=== PATIENT | female | born 1995 | race Caucasian/White ===

== ENCOUNTER 2019-07-13 17:38 | Emergency (ER) | payer OTHER, MEDICAID ==
[~2019-07-13] VITALS: Ht 165.1 cm; Wt 97.5 kg
[2019-07-13] MEDS ORDERED: MAGNESIUM250 M1 PO (17:55)
[2019-07-13 18:27] LABS: ABSOLUTE EOSINOPHILS 0.1 thou/uL (0.0-0.7); ABSOLUTE LYMPHOCYTES 1.5 thou/uL (0.8-5.3); ABSOLUTE MONOCYTES 0.6 thou/uL (0.0-1.2); ABSOLUTE NEUTROPHILS 6.9 thou/uL (1.6-8.1); BASOPHILS 0.3 %; EOSINOPHILS 1.1 %; HEMATOCRIT 30.9 % (37.0-47.0); HEMOGLOBIN 10.9 gm/dL (12.0-15.0); LYMPHOCYTES 16.6 %; MCH 33.4 pg (26.0-34.0); MCHC 35.2 g/dL (28.0-37.0); MCV 94.8 fL (80.0-100.0); MONOCYTES 6.3 %; MPV 8.1 fl. (7.2-11.1); NUCLEATED RBCS 0 /100WBC; PLATELET COUNT* 214 thou/uL (150-400); POLYS 75.7 %; RBC 3.26 mil/uL (4.20-5.00); RDW-CV 13.8 % (10.5-14.5); WBC 9.1 thou/uL (4.0-11.0)
[2019-07-13 18:34] LABS: CREATININE 0.6 mg/dL (0.6-1.3); POTASSIUM 3.6 mmol/L (3.5-5.1)
[2019-07-13 18:35] LABS: APTT 23.6 Seconds (25.0-31.3); INR 0.9; PROTIME 9.7 Seconds (9.20-11.50)
[2019-07-13 18:38] LABS: ALBUMIN 2.7 g/dL (3.4-5.0); TOTAL BILIRUBIN 0.3 mg/dL (<0.1-1.0); URIC ACID* 4.3 mg/dL (2.6-7.2)
[2019-07-13 20:21] LABS: URINE BILIRUBIN NEGATIVE (Negative); URINE BLOOD NEGATIVE (Negative); URINE CLARITY SL CLOUDY; URINE COLOR YELLOW; URINE GLUCOSE-RANDOM NEGATIVE (Negative); URINE KETONES NEGATIVE (Negative); URINE LEUKOCYTES-REFLEX TRACE (Negative); URINE NITRITE-REFLEX NEGATIVE (Negative); URINE PROTEIN TRACE (Negative); URINE SPECIFIC GRAVITY 1.025 (1.005-1.030)
[2019-07-13] MEDS ORDERED: AUGMENTIN 875-1 EACH PO (20:27)
[2019-07-13 20:28] LABS: CASTS None Seen /LPF (None Seen); CRYSTALS None Seen /LPF (None Seen); MUCUS 0-3 Light strn/LPF (None Seen); SQUAMOUS >10 Many /LPF (0-3); URINE WBC-REFLEX 0-5 Rare /HPF (0-5)
[2019-07-13 20:29] LABS: BACTERIA-REFLEX None Seen /HPF (None Seen); URINE RBC None Seen /HPF (0-2)
[2019-07-13 20:40] VITALS: BP 114/79
--- NOTE | 2019-07-14 16:27 | EKG ---
[place] [address] ELECTROCARDIOGRAM REPORT Name: MATEUSZMITESH GELA Room: [facility]#: [id number] Admission: 07/13/19 Attend Phys: Discharge: 07/13/19 Date of : [birth year] Date of Service: 07/13/19 1825 Report #: [id number] THIS REPORT FOR: //name// [facility] ED Test Date: 2019-07-13 Test Time: 18:25:38 Pat Name: MITESH CHILD Department: Room: Gender: Lpn Rn Hospice: [place] : 1995 Requested By: Anny Gates Order Number: [id number] MD: Cricket Peters Measurements Intervals [place] Rate: 85 P: 49 MT: 125 QRS: 42 QRSD: 96 T: 40 QT: 362 QTc: 431 Interpretive Statements Sinus rhythm Baseline wander in lead(s) V2,V6 No previous ECG available for comparison Electronically Signed On 07-14-2019 16:26:36 CDT by Cricket Peters [email or web address] <ELECTRONICALLY SIGNED> By: Cricket Peters MD, [facility] 07/14/19 1626 1825 1825 Cricket Peters MD, [facility] /EPI
== END 2019-07-13 20:41 | disposition home or self-care (01) ==
LOC: M.ERS 17:38
PROVIDERS: Nurse Practitioner Family
DX: N39.0 Urinary tract infection, site not specified (principal); R55 Syncope and collapse; F17.210 Nicotine dependence, cigarettes, uncomplicated; Z88.1 Allergy status to other antibiotic agents